=== PATIENT | female | born 1965 ===

== ENCOUNTER 2017-12-25 16:01 | Inpatient (IN) ==
--- NOTE | 2017-12-25 18:45 | ED ---
HPI General Chief Complaint: Psychiatric Symptoms Stated Complaint: Psych Eval Time Seen by Provider: 12/25/17 18:13 Source: patient Mode of arrival: ambulatory Limitations: no limitations History of Present Illness HPI Narrative: 52-year-old female presents voluntarily for psychiatric evaluation with complaint of anxiety and depression for the past few months. She denies suicidal ideation or history of suicidal attempts. Denies homicidal ideation. She is concerned because she is constantly having the thought of "I do not want to hurt myself" in her head and does not know why. Today while she was driving as a passenger in the vehicle to come to the ER she did tell the power screwdriver operator of the vehicle, who is currently at her bedside, that she was scared to be a passenger in the vehicle because of the thought of possibly opening the door and jumping out. Patient says she does not have any intent or desire to want to hurt herself or kill herself, but she does not understand why she continues to have these thoughts. She is currently being treated with BuSpar and started on a hormone patch for her depression and anxiety. She does have history of hypothyroidism and her Synthroid was increased to 75 mcg 1 week ago. Says her thyroid levels are "all over the place." She denies illicit drug use , alcohol use, tobacco use. Denies auditory or visual hallucinations. Has been trying therapy, seeing a psychiatrist, antidepressants with no relief of symptoms. Says there is no reason for her to be depressed or have anxiety. She believes this all started over concerned that she was sick, with constant thoughts of thinking that she had a tumor in her brain because she had ringing in her ear and this was the same symptom that a friend of hers friend had with a tumor in their brain. Otherwise she does not understand why she is having depression or anxiety. She denies history of psychiatric problems. No known allergies. History of hypothyroidism. Denies other medical complaints. Denies chest pain, shortness of breath, abdominal pain, nausea, vomiting, change in urine or stool. No other modifying factors or associated signs and symptoms. Related Data Home Medications Medication Instructions Recorded Confirmed buspirone 10 mg PO BID 12/25/17 12/25/17 estradiol-norethindrone acet 1 patch TRANSDERMAL 2XWEEK 12/25/17 12/25/17 [CombiPatch] levothyroxine 75 mcg PO DAILY 12/25/17 12/25/17 Allergies Allergy/AdvReac Type Severity Reaction Status Date / Time No Known Allergies Allergy Verified 12/25/17 16:15 Review of Systems ROS: all other systems reviewed are negative PMFSH History History Provided By: Patient Medical History Medical History Patient denies medical problems (Acute) Social History Social History Substance History: No History of Abuse Second Hand Smoke Exposure: No Smoking Status: Never smoker How Often Do You Have a Drink Containing Alcohol: Monthly or less Recent Travel in [facility] within the Last 8 Weeks: No Recent Out of Country Travel within the Last 8 Weeks: No Exam Narrative Exam Narrative: GENERAL: Well-nourished, well-developed female patient , in no acute distress; very pleasant SKIN: Warm and dry. HEAD: Atraumatic. Normocephalic. EYES: Pupils equal and round. ENT: Mucosa pink and moist. NECK: Supple. Trachea midline. CARDIOVASCULAR: Regular rate and rhythm. No murmur appreciated. 3+ radial pulses. RESPIRATORY: No accessory muscle use. Clear to auscultation. Breath sounds equal bilaterally. GASTROINTESTINAL: Abdomen soft, non-tender, nondistended. Hepatic and splenic margins not palpable. Bowel sounds are active 4 quadrants. MUSCULOSKELETAL: No obvious deformities. No clubbing. No cyanosis. No edema. BACK: No CVA tenderness. NEUROLOGICAL: Awake and alert. Oriented 3. No obvious cranial nerve deficits. Motor grossly within normal limits. Normal speech. Moves all extremities. 5/5 strength to all extremities. PSYCHIATRIC: No delusional thought processes. No hallucinations. Course Initial Documented Vital Signs Temperature 98.6 F 12/25/17 16:11 Pulse Rate 90 12/25/17 16:11 Blood Pressure 133/60 12/25/17 16:11 Pulse Oximetry 100 12/25/17 16:11 Last Documented Vital Signs Temperature 98.2 F 12/26/17 05:24 Pulse Rate 80 12/26/17 05:24 Respiratory Rate 16 12/26/17 05:24 Blood Pressure 111/60 12/26/17 05:24 Pulse Oximetry 95 12/26/17 05:24 Medical Decision Making MDM Narrative Medical decision making narrative: Patient presents voluntarily. Physical examination and vital signs are essentially unremarkable. Patient has no medical complaints to report. Psych screen has been ordered. If the laboratory results are unremarkable, the patient will be medically cleared for psychiatric evaluation and disposition. \\ Labs are unremarkable, no signs of intoxication or infection Medical Screen Exam Complete: Yes Emergency Medical Condition: Yes Differential Diagnosis Differential Diagnosis: Anxiety, depression, psychosis, hypothyroid, bipolar disorder, medical clearance for psychiatric evaluation Lab Data Lab results reviewed: Yes I reviewed the patient's lab results. Result diagrams: 12/25/17 19:20 12/26/17 08:00 Lab Results 12/25/17 12/25/17 12/25/17 Range/Units 19:15 19:15 19:20 WBC 7.1 (4.0-11.0) th/mm3 RBC 4.40 (4.00-5.30) mil/mm3 Hgb 12.9 (11.6-15.3) gm/dL Hct 37.9 (35.0-46.0) % MCV 86.2 (80.0-100.0) fL MCH 29.4 (27.0-34.0) pg MCHC 34.1 (32.0-36.0) % RDW 13.5 (11.6-17.2) % Plt Count 261 (150-450) th/mm3 MPV 8.3 (7.0-11.0) fL Neut % (Auto) 73.6 H (16.0-70.0) % Lymph % (Auto) 17.3 (9.0-44.0) % [place] % (Auto) 8.3 H (0.0-8.0) % Eos % (Auto) 0.3 (0.0-4.0) % Baso % (Auto) 0.5 (0.0-2.0) % Neut # (Auto) 5.3 (1.8-7.7) th/mm3 Lymph # (Auto) 1.2 (1.0-4.8) th/mm3 [place] # (Auto) 0.6 (0.0-0.9) th/mm3 Eos # (Auto) 0.0 (0.0-0.4) th/mm3 Baso # (Auto) 0.0 (0.0-0.2) th/mm3 WBC Differential . Differential Comment Auto diff final Sodium (136-145) meq/L Potassium (3.5-5.1) meq/L Chloride (98-107) meq/L Carbon Dioxide (21.0-32.0) meq/L Anion Gap (5-15) meq/L BUN (7-18) mg/dL Creatinine (0.50-1.00) mg/dL Estimated GFR (>89) mL/min Random Glucose (74-106) mg/dL Calcium (8.5-10.1) mg/dL Magnesium (1.5-2.5) mg/dL Total Bilirubin (0.2-1.0) mg/dL AST (15-37) U/L ALT (10-53) U/L Alkaline Phosphatase (45-117) U/L Total Protein (6.4-8.2) g/dL Albumin (3.4-5.0) g/dL Triglycerides (42-150) mg/dL Cholesterol (120-200) mg/dL LDL Cholesterol, Calc (0-99) mg/dL HDL Cholesterol (40.0-60.0) mg/dL Cholesterol/HDL Ratio Ratio TSH (0.358-3.740) uIU/mL Beta HCG, Quant (0-5) mIU/mL Urine Color Yellow (Yellw/Straw) Urine Clarity Hazy H (Clear) Urine pH 6.0 (5.0-8.5) Ur Specific [place] 1.005 (1.002-1.035) Urine Protein Negative (Neg-Trace) mg/dL Urine Glucose (UA) Negative (Negative) mg/dL Urine Ketones 20 (Negative) mg/dL Urine Occult Blood Negative (Negative) Urine Nitrate Negative (Negative) Urine Bilirubin Negative (Negative) Urine Urobilinogen Less than 2 (Less than 2) mg/dL Ur Leukocyte Esterase Negative (Negative) Urine RBC 1 (0-3) /hpf Urine WBC 2 (0-5) /hpf Ur Squamous Epith Cells 7 (0-5) /hpf Urine Bacteria Occasional H (None) /hpf Urine Mucus Few H (Occasional) /lpf Micro UA Comment Culture not ind Ur Microscopic Review Not Reportable Urine Culture Comments Culture not ind Salicylates (2.8-20.0) mg/dL Urine Opiates Screen Neg (Neg) Acetaminophen (10.0-30.0) mcg/mL Ur Barbiturates Screen Neg (Neg) Ur Amphetamines Screen Neg (Neg) U Benzodiazepines Scrn Neg (Neg) Urine Cocaine Screen Neg (Neg) U Cannabinoids Screen Neg (Neg) Serum Alcohol (0-5) mg/dL 12/25/17 12/25/17 12/25/17 Range/Units 19:20 19:20 19:20 WBC (4.0-11.0) th/mm3 RBC (4.00-5.30) mil/mm3 Hgb (11.6-15.3) gm/dL Hct (35.0-46.0) % MCV (80.0-100.0) fL MCH (27.0-34.0) pg MCHC (32.0-36.0) % RDW (11.6-17.2) % Plt Count (150-450) th/mm3 MPV (7.0-11.0) fL Neut % (Auto) (16.0-70.0) % Lymph % (Auto) (9.0-44.0) % [place] % (Auto) (0.0-8.0) % Eos % (Auto) (0.0-4.0) % Baso % (Auto) (0.0-2.0) % Neut # (Auto) (1.8-7.7) th/mm3 Lymph # (Auto) (1.0-4.8) th/mm3 [place] # (Auto) (0.0-0.9) th/mm3 Eos # (Auto) (0.0-0.4) th/mm3 Baso # (Auto) (0.0-0.2) th/mm3 WBC Differential Differential Comment Sodium 140 (136-145) meq/L Potassium 3.6 (3.5-5.1) meq/L Chloride 105 (98-107) meq/L Carbon Dioxide 26.8 (21.0-32.0) meq/L Anion Gap 8 (5-15) meq/L BUN 6 L (7-18) mg/dL Creatinine 0.89 (0.50-1.00) mg/dL Estimated GFR 67 L (>89) mL/min Random Glucose 90 (74-106) mg/dL Calcium 8.9 (8.5-10.1) mg/dL Magnesium 2.0 (1.5-2.5) mg/dL Total Bilirubin 0.6 (0.2-1.0) mg/dL AST 10 L (15-37) U/L ALT 16 (10-53) U/L Alkaline Phosphatase 60 (45-117) U/L Total Protein 6.8 (6.4-8.2) g/dL Albumin 4.1 (3.4-5.0) g/dL Triglycerides (42-150) mg/dL Cholesterol (120-200) mg/dL LDL Cholesterol, Calc (0-99) mg/dL HDL Cholesterol (40.0-60.0) mg/dL Cholesterol/HDL Ratio Ratio TSH 2.890 (0.358-3.740) uIU/mL Beta HCG, Quant 3 (0-5) mIU/mL Urine Color (Yellw/Straw) Urine Clarity (Clear) Urine pH (5.0-8.5) Ur Specific [place] (1.002-1.035) Urine Protein (Neg-Trace) mg/dL Urine Glucose (UA) (Negative) mg/dL Urine Ketones (Negative) mg/dL Urine Occult Blood (Negative) Urine Nitrate (Negative) Urine Bilirubin (Negative) Urine Urobilinogen (Less than 2) mg/dL Ur Leukocyte Esterase (Negative) Urine RBC (0-3) /hpf Urine WBC (0-5) /hpf Ur Squamous Epith Cells (0-5) /hpf Urine Bacteria (None) /hpf Urine Mucus (Occasional) /lpf Micro UA Comment Ur Microscopic Review Urine Culture Comments Salicylates Less than 1.7 L (2.8-20.0) mg/dL Urine Opiates Screen (Neg) Acetaminophen Less than 2.0 L (10.0-30.0) mcg/mL Ur Barbiturates Screen (Neg) Ur Amphetamines Screen (Neg) U Benzodiazepines Scrn (Neg) Urine Cocaine Screen (Neg) U Cannabinoids Screen (Neg) Serum Alcohol Less than 3 (0-5) mg/dL 12/26/17 Range/Units 08:00 WBC (4.0-11.0) th/mm3 RBC (4.00-5.30) mil/mm3 Hgb (11.6-15.3) gm/dL Hct (35.0-46.0) % MCV (80.0-100.0) fL MCH (27.0-34.0) pg MCHC (32.0-36.0) % RDW (11.6-17.2) % Plt Count (150-450) th/mm3 MPV (7.0-11.0) fL Neut % (Auto) (16.0-70.0) % Lymph % (Auto) (9.0-44.0) % [place] % (Auto) (0.0-8.0) % Eos % (Auto) (0.0-4.0) % Baso % (Auto) (0.0-2.0) % Neut # (Auto) (1.8-7.7) th/mm3 Lymph # (Auto) (1.0-4.8) th/mm3 [place] # (Auto) (0.0-0.9) th/mm3 Eos # (Auto) (0.0-0.4) th/mm3 Baso # (Auto) (0.0-0.2) th/mm3 WBC Differential Differential Comment Sodium 141 (136-145) meq/L Potassium 4.1 (3.5-5.1) meq/L Chloride 105 (98-107) meq/L Carbon Dioxide 26.6 (21.0-32.0) meq/L Anion Gap 9 (5-15) meq/L BUN 7 (7-18) mg/dL Creatinine 0.82 (0.50-1.00) mg/dL Estimated GFR 74 L (>89) mL/min Random Glucose 86 (74-106) mg/dL Calcium 8.9 (8.5-10.1) mg/dL Magnesium (1.5-2.5) mg/dL Total Bilirubin (0.2-1.0) mg/dL AST (15-37) U/L ALT (10-53) U/L Alkaline Phosphatase (45-117) U/L Total Protein (6.4-8.2) g/dL Albumin (3.4-5.0) g/dL Triglycerides 61 (42-150) mg/dL Cholesterol 210 H (120-200) mg/dL LDL Cholesterol, Calc 120 H (0-99) mg/dL HDL Cholesterol 77.6 H (40.0-60.0) mg/dL Cholesterol/HDL Ratio 2.70 Ratio TSH (0.358-3.740) uIU/mL Beta HCG, Quant (0-5) mIU/mL Urine Color (Yellw/Straw) Urine Clarity (Clear) Urine pH (5.0-8.5) Ur Specific [place] (1.002-1.035) Urine Protein (Neg-Trace) mg/dL Urine Glucose (UA) (Negative) mg/dL Urine Ketones (Negative) mg/dL Urine Occult Blood (Negative) Urine Nitrate (Negative) Urine Bilirubin (Negative) Urine Urobilinogen (Less than 2) mg/dL Ur Leukocyte Esterase (Negative) Urine RBC (0-3) /hpf Urine WBC (0-5) /hpf Ur Squamous Epith Cells (0-5) /hpf Urine Bacteria (None) /hpf Urine Mucus (Occasional) /lpf Micro UA Comment Ur Microscopic Review Urine Culture Comments Salicylates (2.8-20.0) mg/dL Urine Opiates Screen (Neg) Acetaminophen (10.0-30.0) mcg/mL Ur Barbiturates Screen (Neg) Ur Amphetamines Screen (Neg) U Benzodiazepines Scrn (Neg) Urine Cocaine Screen (Neg) U Cannabinoids Screen (Neg) Serum Alcohol (0-5) mg/dL Discharge Plan Discharge Disposition Patient Disposition: 30 Still Patient Discharge Condition Condition: Stable Discharge Order Discharge Orders: Discharge Order (Routine); Ordered 12/26/17 Ordered By: Marin Lira Discharge Details Anticipated Discharge Date: 12/26/17 Diagnosis: Encounter for psychiatric assessment Physicians Team ED Provider: Lori Rao ED Midlevel Provider: Antonette Perry Primary Care Provider: Primary Care Annie Phipps Attending Provider: Marin Lira Status ED Status: Left Department Discharge Information Discharge Date/Time: 12/25/17 22:52
[2017-12-25 19:31] LABS: Baso % (Auto) 0.5 % (0.0-2.0); Eos % (Auto) 0.3 % (0.0-4.0); Hematocrit 37.9 % (35.0-46.0); Hemoglobin 12.9 gm/dL (11.6-15.3); Lymph # (Auto) 1.2 th/mm3 (1.0-4.8); Lymph % (Auto) 17.3 % (9.0-44.0); Mean Corpuscular HGB Conc 34.1 % (32.0-36.0); Mean Corpuscular Hemoglobin 29.4 pg (27.0-34.0); Mean Corpuscular Volume 86.2 fL (80.0-100.0); Mean Platelet Volume 8.3 fL (7.0-11.0); Mono # (Auto) 0.6 th/mm3 (0.0-0.9); Mono % (Auto) 8.3 % (0.0-8.0); Neut # (Auto) 5.3 th/mm3 (1.8-7.7); Neut % (Auto) 73.6 % (16.0-70.0); Platelet Count 261 th/mm3 (150-450); Red Cell Distribution Width 13.5 % (11.6-17.2); White Blood Count 7.1 th/mm3 (4.0-11.0)
[2017-12-25 19:53] LABS: Albumin 4.1 g/dL (3.4-5.0); Anion Gap 8 meq/L (5-15); Aspartate Aminotransferase 10 U/L (15-37); Blood Urea Nitrogen 6 mg/dL (7-18); Calcium 8.9 mg/dL (8.5-10.1); Carbon Dioxide 26.8 meq/L (21.0-32.0); Chloride 105 meq/L (98-107); Glomerular Filtration Rate 67 mL/min (>89); Glucose,Random 90 mg/dL (74-106); Potassium 3.6 meq/L (3.5-5.1); Sodium 140 meq/L (136-145)
[2017-12-25 19:54] LABS: Alanine Aminotransferase 16 U/L (10-53)
[2017-12-25 19:55] LABS: Bacteria,Urine Occasional /hpf; Bilirubin,Urine Negative (Negative); Clarity,Urine Hazy (Clear); Color,Urine Yellow (Yellw/Straw); Glucose,Urine (UA) Negative (Negative); Leukocyte Esterase,Urine Negative (Negative); Mucus,Urine Few /lpf (Occasional); Nitrite,Urine Negative (Negative); Specific Gravity,Urine 1.005 (1.002-1.035); Squamous Epithelial Cell,Urine 7 /hpf (0-5)
[2017-12-25 19:56] LABS: Amphetamine Screen,Urine Neg (Neg); Barbiturate Screen,Urine Neg (Neg); Cannabinoid Screen,Urine Neg (Neg); Cocaine Screen,Urine Neg (Neg)
[2017-12-25 20:02] LABS: Alkaline Phosphatase 60 U/L (45-117); Total Protein 6.8 g/dL (6.4-8.2)
[2017-12-25 20:21] LABS: Opiate Screen,Urine Neg (Neg)
[2017-12-25] MEDS ORDERED: Melatonin 5 MG Tablet PO PRN (21:59)
[2017-12-25] MEDS ORDERED: Acetaminophen 325 MG Tablet PO PRN (21:59)
[2017-12-25] MEDS ORDERED: Aluminum/Magnesium/Simethacone Susp 30 ML UDC PO PRN (21:59)
[2017-12-25 22:34] VITALS: RESP 16
[2017-12-26 05:26] VITALS: BP 111/60; PULSE 80; TEMP 98.2; O2SAT 95
[2017-12-26] MEDS ORDERED: Levothyroxine 75 MCG Tablet PO SCH (06:00)
[2017-12-26 09:31] LABS: Calcium 8.9 mg/dL (8.5-10.1); Carbon Dioxide 26.6 meq/L (21.0-32.0); Potassium 4.1 meq/L (3.5-5.1)
[2017-12-26 09:34] LABS: Chol/HDL Ratio 2.7 Ratio; HDL Cholesterol 77.6 mg/dL (40.0-60.0)
--- NOTE | 2017-12-26 12:06 | P.HPPSY ---
Provisional Diagnosis Admission Date: December 25, 2017 21:57 [place] I.: Major depressive disorder single episode mild with anxiety features Competence Certification of Person's Competence To Provide Express and Informed Consent I have personally examined Zakia Newman, a person being served at [facility] on, December 26, 2017 1152. Express and informed consent means consent voluntarily given in writing, by a competent person, after sufficient explanation and disclosure of the subject matter involved to enable the person to make a knowing and willful decision without any element of force, fraud, deceit, duress, or other form of constraint or coercion. This person is 18 years of age or older, is not now known to be incompetent to consent to treatment with a guardian advocate, and does not have a health care surrogate or proxy currently making medical treatment decisions. I have found this person to be one of the following: [xxx] Competent to provide express and informed consent, as defined above, for voluntary admission to this facility and is competent to provide express and informed consent for treatment. He/she has the consistent capacity to make well reasoned, willful, and knowing decisions concerning his or her medical or mental health treatment. The person fully and consistently understands the purpose of the admission for examination/placement and is fully capable of personally exercising all rights assured [place] Incompetent to provide express and informed consent to voluntary admission, and this is incompetent to provide express and informed consent to treatment. The person must be transferred to involuntary status and a petition for a guardian advocate filed with the Circuit Court. [] Refusing to provide express and informed consent to voluntary admission but is competent to provide express and informed consent for treatment. The person must be discharged or transferred to involuntary status. Form shall be completed within 24 hours of a person's arrival at the receiving facility and filed in the clinical record of each person: 1. Admitted on a voluntary basis 2. Permitted to provide express and informed consent to his/her own treatment 3. Allowed to transfer from involuntary to voluntary status 4. Prior to permitting a person to consent to his or her own treatment after having been previously found incompetent to consent to treatment. History of Present Illness Capacity: Has capacity History of Present Illness: Patient is a 52-year-old white female comes here voluntarily planes of depression some vague intermittent suicidal thoughts with no intent plan or 8 attempt. Patient seen screen in the ED urine toxicology negative blood alcohol level negative. At the present time patient sitting quietly in her room also present was nurse April and counselor. Patient alert oriented calm cooperative with me with good eye contact she is reactive and appropriate. Stating that she lives with her of many years her first , they have a good relationship. She is quite attached to him. They have 3 children of 21-year- old daughter and twin 16-year-old girls. It appears that home life is good. Patient states she has infrequent beer otherwise no alcohol or other drug use. She denies any prior physical and/or sexual abuse. Denies any mental health history in her family of origin or significant medical problems in her family of origin. She does acknowledge that depression that seems of come up the past month or 2 along with some increased symptoms of menopause, she also suffers with difficulty with stabilizing her thyroid function. She states she has had some mild mid and late insomnia, her appetite is been somewhat down. She has lost about 10 pounds. She states his sex drive is down but tolerable. She says her concentration and attention is okay. Her coping skills are okay. She denies voices or visions with this. And denies self-medicating. She states she is concerned about the depression. Have her sister drive her to the hospital during that drive she had an automatic thought that popped up about perhaps opening of the door and jumping out though she processed that thought appropriately and showed good reality testing related to it. Patient does states she has seen a psychiatrist for this was placed on various antidepressants including Effexor Zoloft and Lexapro it appears her trials on each 1 of those brief. She does acknowledge being somewhat obsessive and was quite observant of herself looking for side effects. As if with a self- fulfilling prophecy. She has not been initially placed on BuSpar now at 10 mg twice daily she says that is helping her somewhat. She denies drinking more than 1 cup of coffee per today denies being a smoker. He does see a counselor though not very frequently. She did stop seeing her prior psychiatrist. She denies any prior inpatient psychiatric hospitalizations. She denies any other significant medical or surgical problems except for the thyroid and the menopausal symptoms at this time patient no longer meets criteria for inpatient psychiatric hospitalization. Patient does wish to be discharged back home. I agree with that at this time the patient does have the capacity to find appropriate services in the community. I did suggest she consider going to our outpatient support groups, continue more frequently with her therapist, and also explore her insurance panel to be connected with a psychiatrist that may give her more appropriate trial on an antidepressant this will be discharged today - Inpatient Certification I certify that the inpatient services were ordered in accordance with Medicare regulations governing the order. This includes certification that hospital inpatient services are reasonable and necessary and in the case of services not specified as inpatient-only under 42 CFR 419.22(n), that they are appropriately provided as inpatient services in accordance to with the 2-midnight benchmark under 43 CFR 412.3(e) I certify that inpatient psychiatric hospital services are medically necessary. Evaluation and treatment and/or diagnostic testing are expected to improve the patient's condition. The patient needs on a daily basis, active treatment furnished directly by or requiring the supervision of inpatient psychiatric facility personnel. Estimated Total Length of Stay (Days): 1 Plans for Post Hospital Care: Home Review of Systems All other systems reviewed negative except as stated in HPI Constitutional: Reports lack of energy, Reports weight loss PMFSH - History History Provided By: Patient - Medical History Medical History: Medical History (Last Reviewed 12/26/17 @ 12:02 by Marin Lira MD) Patient denies medical problems - Surgical History Surgical History: Surgical History (Last Reviewed 12/26/17 @ 12:02 by Marin Lira MD) No history of previous surgery - Social History I have reviewed the patient's Social History: Yes - Tobacco History Second Hand Smoke Exposure: No Smoking Status: Never smoker - Alcohol History How Often Do You Have a Drink Containing Alcohol: Never - Substance Use History Substance History: No History of Abuse - Travel History Recent Travel in the [place] Within the Last 8 Weeks: No Recent Travel Out of the Country Within the Last 8 Weeks: No - Immunization History Tetanus Immunization: Unsure Hx Influenza Vaccine This Season: No Quality Measures - Psychiatric History Psychological trauma history: Patient denies Violence risk to others in the last 6 months: Low Violence risk to self in the last 6 months: Low - Substance Abuse History Drug or alcohol use in the past 12 months: Infrequent beer - Patient Strengths Patient's strengths (minimum of 2): Patient verbal cooperative he has supportive family Medications and Allergies Active Medications: Active Medications Acetaminophen (Tylenol) 650 mg PO Q4H PRN PRN Reason: Pain 1-5 or Temp >101F Al Hydrox/Mg Hydrox/Simethicone (Mag-Al Plus Susp Liq) 30 ml PO Q6H PRN PRN Reason: DYSPEPSIA Al Hydroxide/Mg Hydroxide (Milk Of Magnesia Liq) 30 ml PO Q12H PRN PRN Reason: Mild Constipation Buspirone HCl (Buspar) 10 mg PO BID [facility] Levothyroxine Sodium (Synthroid) 75 mcg PO DAILY@0600 [facility] Last Admin: 12/26/17 05:16 Dose: 75 mcg Melatonin (Melatonin) 5 mg PO HS PRN PRN Reason: INSOMNIA Last Admin: 12/25/17 23:33 Dose: 5 mg Nicotine (Habitrol 14 Mg Patch.24 Hr) 1 patch T-DERMAL DAILY PRN PRN Reason: Nicotine craving Patch Removal (Remove Old Patch) 1 each T-DERMAL DAILY [facility] Patch Removal (Remove Old Patch) 1 each T-DERMAL MoTh [facility] Estradiol- Norethindrone Acet 0 .05/0.14mg [ Combipatch] 1 Patch 1 each TOPICAL MoTh@0900 [facility] Allergies Allergy/AdvReac Type Severity Reaction Status Date / Time No Known Allergies Allergy Verified 12/25/17 16:15 Home Medications Medication Instructions Recorded Confirmed Type buspirone 10 mg PO BID 12/25/17 12/25/17 History estradiol-norethindrone acet 1 patch TRANSDERMAL 2XWEEK 12/25/17 12/25/17 History [CombiPatch] levothyroxine 75 mcg PO DAILY 12/25/17 12/25/17 History Results - Labs CBC & Chem 7: 12/25/17 19:20 12/26/17 08:00 Labs: Laboratory Results - last 24 hr 12/25/17 12/25/17 12/25/17 19:15 19:15 19:20 WBC 7.1 RBC 4.40 Hgb 12.9 Hct 37.9 MCV 86.2 MCH 29.4 MCHC 34.1 RDW 13.5 Plt Count 261 MPV 8.3 Neut % (Auto) 73.6 H Lymph % (Auto) 17.3 [place] % (Auto) 8.3 H Eos % (Auto) 0.3 Baso % (Auto) 0.5 Neut # (Auto) 5.3 Lymph # (Auto) 1.2 [place] # (Auto) 0.6 Eos # (Auto) 0.0 Baso # (Auto) 0.0 WBC Differential . Differential Comment Auto diff final Sodium Potassium Chloride Carbon Dioxide Anion Gap BUN Creatinine Estimated GFR Random Glucose Calcium Magnesium Total Bilirubin AST ALT Alkaline Phosphatase Total Protein Albumin Triglycerides Cholesterol LDL Cholesterol, Calc HDL Cholesterol Cholesterol/HDL Ratio TSH Beta HCG, Quant Urine Color Yellow Urine Clarity Hazy H Urine pH 6.0 Ur Specific Husser 1.005 Urine Protein Negative Urine Glucose (UA) Negative Urine Ketones 20 Urine Occult Blood Negative Urine Nitrate Negative Urine Bilirubin Negative Urine Urobilinogen Less than 2 Ur Leukocyte Esterase Negative Urine RBC 1 Urine WBC 2 Ur Squamous Epith Cells 7 Urine Bacteria Occasional H Urine Mucus Few H Micro UA Comment Culture not ind Ur Microscopic Review Not Reportable Urine Culture Comments Culture not ind Salicylates Urine Opiates Screen Neg Acetaminophen Ur Barbiturates Screen Neg Ur Amphetamines Screen Neg U Benzodiazepines Scrn Neg Urine Cocaine Screen Neg U Cannabinoids Screen Neg Serum Alcohol 12/25/17 12/25/17 12/25/17 19:20 19:20 19:20 WBC RBC Hgb Hct MCV MCH MCHC RDW Plt Count MPV Neut % (Auto) Lymph % (Auto) [place] % (Auto) Eos % (Auto) Baso % (Auto) Neut # (Auto) Lymph # (Auto) [place] # (Auto) Eos # (Auto) Baso # (Auto) WBC Differential Differential Comment Sodium 140 Potassium 3.6 Chloride 105 Carbon Dioxide 26.8 Anion Gap 8 BUN 6 L Creatinine 0.89 Estimated GFR 67 L Random Glucose 90 Calcium 8.9 Magnesium 2.0 Total Bilirubin 0.6 AST 10 L ALT 16 Alkaline Phosphatase 60 Total Protein 6.8 Albumin 4.1 Triglycerides Cholesterol LDL Cholesterol, Calc HDL Cholesterol Cholesterol/HDL Ratio TSH 2.890 Beta HCG, Quant 3 Urine Color Urine Clarity Urine pH Ur Specific [place] Urine Protein Urine Glucose (UA) Urine Ketones Urine Occult Blood Urine Nitrate Urine Bilirubin Urine Urobilinogen Ur Leukocyte Esterase Urine RBC Urine WBC Ur Squamous Epith Cells Urine Bacteria Urine Mucus Micro UA Comment Ur Microscopic Review Urine Culture Comments Salicylates Less than 1.7 L Urine Opiates Screen Acetaminophen Less than 2.0 L Ur Barbiturates Screen Ur Amphetamines Screen U Benzodiazepines Scrn Urine Cocaine Screen U Cannabinoids Screen Serum Alcohol Less than 3 12/26/17 08:00 WBC RBC Hgb Hct MCV MCH MCHC RDW Plt Count MPV Neut % (Auto) Lymph % (Auto) Fall[place] % (Auto) Eos % (Auto) Baso % (Auto) Neut # (Auto) Lymph # (Auto) [place] # (Auto) Eos # (Auto) Baso # (Auto) WBC Differential Differential Comment Sodium 141 Potassium 4.1 Chloride 105 Carbon Dioxide 26.6 Anion Gap 9 BUN 7 Creatinine 0.82 Estimated GFR 74 L Random Glucose 86 Calcium 8.9 Magnesium Total Bilirubin AST ALT Alkaline Phosphatase Total Protein Albumin Triglycerides 61 Cholesterol 210 H LDL Cholesterol, Calc 120 H HDL Cholesterol 77.6 H Cholesterol/HDL Ratio 2.70 TSH Beta HCG, Quant Urine Color Urine Clarity Urine pH Ur Specific Huss[place] Urine Protein Urine Glucose (UA) Urine Ketones Urine Occult Blood Urine Nitrate Urine Bilirubin Urine Urobilinogen Ur Leukocyte Esterase Urine RBC Urine WBC Ur Squamous Epith Cells Urine Bacteria Urine Mucus Micro UA Comment Ur Microscopic Review Urine Culture Comments Salicylates Urine Opiates Screen Acetaminophen Ur Barbiturates Screen Ur Amphetamines Screen U Benzodiazepines Scrn Urine Cocaine Screen U Cannabinoids Screen Serum Alcohol Exam Vital signs: Vital Signs 12/25/17 16:11 12/25/17 18:16 12/25/17 22:00 Temperature 98.6 F Pulse Rate 90 89 67 Respiratory Rate 18 16 Blood Pressure 133/60 115/66 99/49 L Pulse Oximetry 100 100 97 12/26/17 00:09 12/26/17 05:24 Temperature 98 F 98.2 F Pulse Rate 82 80 Respiratory Rate 16 16 Blood Pressure 123/74 111/60 Pulse Oximetry 100 95 Intake & Output 12/25/17 12/26/17 12/26/17 18:59 06:59 18:59 Intake Total 360 / 360 Balance 360 / 360 Weight 59.874 kg 59.874 kg Intake: Oral 360 / 360 Other: Weight On Admission 59.874 kg Narrative: Patient seen sitting quietly in her bed she is in no acute distress, patient no respiratory distress, no complaints of chest pain or abdominal pain. Patient moving all 4 extremities without difficulty Mental Status Examination Appearance: Appropriate Consciousness: Alert Orientation: x4 Motor Activity: Normal gait Speech: Unremarkable Language: Adequate Fund of Knowledge: Adequate Attention and Concentration: Adequate Memory: Unremarkable Mood: Other (Euthymic to mildly dysphoric mildly anxious) Affect: Other (Good range and intensity) Thought Process & Associations: Intact, Logical, Goal directed Thought Content: Appropriate Hallucination Type: None Delusion Type: None Suicidal Ideation: No Suicidal Plan: No Suicidal Intention: No Homicidal Ideation: No Homicidal Plan: No Homicidal Intention: No Insight: Adequate Judgment: Adequate Assessment and Plan - Assessment (1) Major depressive disorder, single episode, mild with anxious distress Code(s): F32.0 - Major depressive disorder, single episode, mild Status: Acute - Plan Plan: Estimated LOS: [] days At this time patient does not meet criteria for inpatient psychiatric hospitalization patient to be discharged to herself, she will continue on her BuSpar and her other medications, will strongly recommend some increased frequency of her counseling, she needs to reconnect with a psychiatrist, also recommend her having a trial at our outpatient support groups Justification for Continued Inpatient Stay: Patient to be discharged today Discharge Planning: Return home with family Request Healthcare Surrogate/Guardian Advocate?: No
--- NOTE | 2017-12-26 12:12 | P.DSPSY ---
Psychiatry Discharge Summary Inpatient Psychiatric care?: Yes Advance Directives: No Mental Health Advance Directive: No Health Care Proxy: No - Admission Admission Date: December 25, 2017 21:57 Brief History: Patient is a 52-year-old white female comes here voluntarily planes of depression some vague intermittent suicidal thoughts with no intent plan or 8 attempt. Patient seen screen in the ED urine toxicology negative blood alcohol level negative. At the present time patient sitting quietly in her room also present was nurse April and counselor. Patient alert oriented calm cooperative with me with good eye contact she is reactive and appropriate. Stating that she lives with her of many years her first , they have a good relationship. She is quite attached to him. They have 3 children of 21-year- old daughter and twin 16-year-old girls. It appears that home life is good. Patient states she has infrequent beer otherwise no alcohol or other drug use. She denies any prior physical and/or sexual abuse. Denies any mental health history in her family of origin or significant medical problems in her family of origin. She does acknowledge that depression that seems of come up the past month or 2 along with some increased symptoms of menopause, she also suffers with difficulty with stabilizing her thyroid function. She states she has had some mild mid and late insomnia, her appetite is been somewhat down. She has lost about 10 pounds. She states his sex drive is down but tolerable. She says her concentration and attention is okay. Her coping skills are okay. She denies voices or visions with this. And denies self-medicating. She states she is concerned about the depression. Have her sister drive her to the hospital during that drive she had an automatic thought that popped up about perhaps opening of the door and jumping out though she processed that thought appropriately and showed good reality testing related to it. Patient does states she has seen a psychiatrist for this was placed on various antidepressants including Effexor Zoloft and Lexapro it appears her trials on each 1 of those brief. She does acknowledge being somewhat obsessive and was quite observant of herself looking for side effects. As if with a self- fulfilling prophecy. She has not been initially placed on BuSpar now at 10 mg twice daily she says that is helping her somewhat. She denies drinking more than 1 cup of coffee per today denies being a smoker. He does see a counselor though not very frequently. She did stop seeing her prior psychiatrist. She denies any prior inpatient psychiatric hospitalizations. She denies any other significant medical or surgical problems except for the thyroid and the menopausal symptoms at this time patient no longer meets criteria for inpatient psychiatric hospitalization. Patient does wish to be discharged back home. I agree with that at this time the patient does have the capacity to find appropriate services in the community. I did suggest she consider going to our outpatient support groups, continue more frequently with her therapist, and also explore her insurance panel to be connected with a psychiatrist that may give her more appropriate trial on an antidepressant this will be discharged today Tobacco Use In Past 30 Days: No How Often Do You Have a Drink Containing Alcohol: Monthly or less Hospital Course: Please see above dictation under brief history. Patient does not meet criteria for inpatient hospitalization she to be discharged today she denies suicidality homicidality voice or visions. Is willing to follow up with a therapist in the community, psychiatric services, and our outpatient support she may continue her own home medications, no Rx by me - Discharge Discharge Date: 12/26/17 - Discharge Diagnosis (1) Major depressive disorder, single episode, mild with anxious distress Diagnosis: Principal Code(s): F32.0 - Major depressive disorder, single episode, mild Status: Acute Discharge Disposition: Home - Discharge Instructions Discharge Diet: Regular Diet Activities You Can Perform: Regular- No Restrictions - Discharge Time > 30 minutes Mental Status Examination Appearance: Appropriate Consciousness: Alert Orientation: x4 Motor Activity: Normal gait Speech: Unremarkable Language: Adequate Fund of Knowledge: Adequate Attention and Concentration: Adequate Memory: Unremarkable Mood: Other (Euthymic to mildly dysphoric mildly anxious) Affect: Other (Good range and intensity) Thought Process & Associations: Intact, Logical, Goal directed Thought Content: Appropriate Hallucination Type: None Delusion Type: None Suicidal Ideation: No Suicidal Plan: No Suicidal Intention: No Homicidal Ideation: No Homicidal Plan: No Homicidal Intention: No Insight: Adequate Judgment: Adequate Discharge/Advance Care Plan - Results Vital Signs: Last Vital Signs Temp 98.2 F 12/26/17 05:24 Pulse 80 12/26/17 05:24 Resp 16 12/26/17 05:24 BP 111/60 12/26/17 05:24 Pulse Ox 95 12/26/17 05:24 Lab Results: Abnormal Lab Results 12/25/17 12/25/1712/25/18 19:15 19:15 19:20 WBC 7.1 RBC 4.40 Hgb 12.9 Hct 37.9 MCV 86.2 MCH 29.4 MCHC 34.1 RDW 13.5 Plt Count 261 MPV 8.3 Neut % (Auto) 73.6 H Lymph % (Auto) 17.3 [place] % (Auto) 8.3 H Eos % (Auto) 0.3 Baso % (Auto) 0.5 Neut # (Auto) 5.3 Lymph # (Auto) 1.2 [place] # (Auto) 0.6 Eos # (Auto) 0.0 Baso # (Auto) 0.0 WBC Differential . Differential Comment Auto diff final Sodium Potassium Chloride Carbon Dioxide Anion Gap BUN Creatinine Estimated GFR Random Glucose Calcium Magnesium Total Bilirubin AST ALT Alkaline Phosphatase Total Protein Albumin Triglycerides Cholesterol LDL Cholesterol, Calc HDL Cholesterol Cholesterol/HDL Ratio TSH Beta HCG, Quant Urine Color Yellow Urine Clarity Hazy H Urine pH 6.0 Ur Specific [place] 1.005 Urine Protein Negative Urine Glucose (UA) Negative Urine Ketones 20 Urine Occult Blood Negative Urine Nitrate Negative Urine Bilirubin Negative Urine Urobilinogen Less than 2 Ur Leukocyte Esterase Negative Urine RBC 1 Urine WBC 2 Ur Squamous Epith Cells 7 Urine Bacteria Occasional H Urine Mucus Few H Micro UA Comment Culture not ind Ur Microscopic Review Not Reportable Urine Culture Comments Culture not ind Salicylates Urine Opiates Screen Neg Acetaminophen Ur Barbiturates Screen Neg Ur Amphetamines Screen Neg U Benzodiazepines Scrn Neg Urine Cocaine Screen Neg U Cannabinoids Screen Neg Serum Alcohol 12/25/17 12/25/17 12/25/17 19:20 19:20 19:20 WBC RBC Hgb Hct MCV MCH MCHC RDW Plt Count MPV Neut % (Auto) Lymph % (Auto) [place] % (Auto) Eos % (Auto) Baso % (Auto) Neut # (Auto) Lymph # (Auto) [place] # (Auto) Eos # (Auto) Baso # (Auto) WBC Differential Differential Comment Sodium 140 Potassium 3.6 Chloride 105 Carbon Dioxide 26.8 Anion Gap 8 BUN 6 L Creatinine 0.89 Estimated GFR 67 L Random Glucose 90 Calcium 8.9 Magnesium 2.0 Total Bilirubin 0.6 AST 10 L ALT 16 Alkaline Phosphatase 60 Total Protein 6.8 Albumin 4.1 Triglycerides Cholesterol LDL Cholesterol, Calc HDL Cholesterol Cholesterol/HDL Ratio TSH 2.890 Beta HCG, Quant 3 Urine Color Urine Clarity Urine pH Ur Specific [place] Urine Protein Urine Glucose (UA) Urine Ketones Urine Occult Blood Urine Nitrate Urine Bilirubin Urine Urobilinogen Ur Leukocyte Esterase Urine RBC Urine WBC Ur Squamous Epith Cells Urine Bacteria Urine Mucus Micro UA Comment Ur Microscopic Review Urine Culture Comments Salicylates Less than 1.7 L Urine Opiates Screen Acetaminophen Less than 2.0 L Ur Barbiturates Screen Ur Amphetamines Screen U Benzodiazepines Scrn Urine Cocaine Screen U Cannabinoids Screen Serum Alcohol Less than 3 12/26/17 08:00 WBC RBC Hgb Hct MCV MCH MCHC RDW Plt Count MPV Neut % (Auto) Lymph % (Auto) [place] % (Auto) Eos % (Auto) Baso % (Auto) Neut # (Auto) Lymph # (Auto) [place] # (Auto) Eos # (Auto) Baso # (Auto) WBC Differential Differential Comment Sodium 141 Potassium 4.1 Chloride 105 Carbon Dioxide 26.6 Anion Gap 9 BUN 7 Creatinine 0.82 Estimated GFR 74 L Random Glucose 86 Calcium 8.9 Magnesium Total Bilirubin AST ALT Alkaline Phosphatase Total Protein Albumin Triglycerides 61 Cholesterol 210 H LDL Cholesterol, Calc 120 H HDL Cholesterol 77.6 H Cholesterol/HDL Ratio 2.70 TSH Beta HCG, Quant Urine Color Urine Clarity Urine pH Ur Specific [place] Urine Protein Urine Glucose (UA) Urine Ketones Urine Occult Blood Urine Nitrate Urine Bilirubin Urine Urobilinogen Ur Leukocyte Esterase Urine RBC Urine WBC Ur Squamous Epith Cells Urine Bacteria Urine Mucus Micro UA Comment Ur Microscopic Review Urine Culture Comments Salicylates Urine Opiates Screen Acetaminophen Ur Barbiturates Screen Ur Amphetamines Screen U Benzodiazepines Scrn Urine Cocaine Screen U Cannabinoids Screen Serum Alcohol Laboratory Results Triglycerides 61 mg/dL (42-150) 12/26/17 08:00 Cholesterol 210 mg/dL (120-200) H 12/26/17 08:00 LDL Cholesterol, Calc 120 mg/dL (0-99) H 12/26/17 08:00 HDL Cholesterol 77.6 mg/dL (40.0-60.0) H 12/26/17 08:00 TSH 2.890 uIU/mL (0.358-3.740) 12/25/17 19:20 Urine Culture Comments Culture not ind 12/25/17 19:15 Summary of Procedures: None done Pending Results: None - Medications Number of antipsychotic medications at discharge: 0 - Discharge Care Plan Goals to Promote Your Health: * To prevent worsening of your condition and complications * To maintain your health at the optimal level Directions to Meet Your Goals: Take your medications as prescribed Follow your dietary instruction Follow activity as directed Keep your appointments as scheduled Take your immunizations and boosters as scheduled If your symptoms worsen call your PCP, if no PCP go to Urgent Care Center or Emergency Room For 09/09 questions related to your inpatient stay or results of tests pending at discharge, please contact Dr. Marin Lira MD at Smoking is Dangerous to Your Health. Avoid second hand smoking
[2017-12-29] MEDS ORDERED: ESTRADIOL NORETHINDRONE ACET TOPICAL SCH (09:00)
[2017-12-29] MEDS ORDERED: [UNRECOGNIZED DRUG - REMARK] T-DERMAL SCH (09:00)
== END 2017-12-26 16:05 | disposition home or self-care (01) ==
LOC: NEPB 16:01 → NEDA 21:57 → H260 22:50
PROVIDERS: ADMIT Psychiatry & Neurology Psychiatry; ATTEND Psychiatry & Neurology Psychiatry